=== PATIENT | female | born 1985 | race Two or more races ===

== ENCOUNTER → 2018-04-14 | Emergency (ER) | payer SELFPAY ==
[~2018-04-14] VITALS: Ht 162.6 cm; Wt 65.8 kg
[~2018-04-14] MED LIST: CLINDAMYCIN HC300 MG ORAL; NORCO 5-325 TA1 EACH ORAL; Norco 5mg/325mg tab ORAL ONE
--- NOTE | 2018-04-14 10:50 | NUR ---
ED Nurse Note: patient ambulated into the ED c/oleft upper toothache x 3 days not relieved by tylenol. has appt with dentist next week but the pain got worse that she cannot tolerate, rates 610
[2018-04-14 10:55] VITALS: BP 121/87
--- NOTE | 2018-04-14 11:14 | Emergency Room Report ---
History of Present Illness General Chief Complaint: Toothache Source: Patient Present Illness HPI This patient states she has a history of cavities in the molars on the upper left. She states that she has a filling there that became dislodged. She states that she does have an appointment with the dentist for Wednesday (5 days from now). She states that she needed to make a payment towards her dental bill in order to get seen there. She states she gets paid tomorrow and so will be able to do that and get seen on Wednesday. She has pain in the first molar of the upper left. It is very tender to the touch and sensitive to cold. She denies headache or neck pain. She denies fever or chills. She denies swelling in her face. She has no other complaints. Allergies: Coded Allergies: IBUPROFEN (Verified Allergy, Severe, Rash, 04/14/18) Patient History Past Medical History: none Social History: Denies: smoking, alcohol use, drug use Last Menstrual Period: 04-14 Now: No Reviewed Nursing Documentation: PMH: Agreed; PSxH: Agreed Nursing Documentation-PMH Past Medical History: No Stated History Review of Systems All Other Systems: negative except mentioned in HPI Physical Exam Vital Signs Date Time Temp Pulse Resp B/P (MAP) Pulse Ox O2 Delivery O2 Flow Rate FiO2 04/14/18 10:27 98.8 94 20 121/87 97 Room Air Sp02 EP Interpretation: reviewed, normal General Appearance: no apparent distress, alert, GCS 15, non-toxic Head: normocephalic, atraumatic Eyes: bilateral eye normal inspection, bilateral eye PERRL ENT: hearing grossly normal, normal pharynx, no angioedema, normal voice, other - Dental caries. 1st molar TTP with partial filling in place. No erythema. Neck: full range of motion, supple/symm/no masses Respiratory: no respiratory distress, no retraction, no accessory muscle use, speaking full sentences Rectal: deferred Musculoskeletal: back normal, gait/station normal, normal range of motion, non- tender Neurologic: alert, oriented x3, responsive, motor strength/tone normal, sensory intact, speech normal Psychiatric: judgement/insight normal, memory normal, mood/affect normal, no suicidal/homicidal ideation Skin: normal color, no rash, warm/dry, well hydrated Medical Decision Making Diagnostic Impression: Primary Impression: Odontalgia ER Course This patient has odontogenic pain. The tooth has a partial filling and is exposed and is very tender to palpation. The patient has plans to get the filling replaced in 5 days. There is no evidence of significant infection. I will go ahead and give the patient course of clindamycin as a precaution. Also give the patient pain medication for symptomatic relief. At this time it did not identify an emergency medical condition. There is no evidence of abscess or emergency infection. The patient is given close return precautions and follow-up instructions. Last Vital Signs Date Time Temp Pulse Resp B/P (MAP) Pulse Ox O2 Delivery O2 Flow Rate FiO2 04/14/18 10:55 98.8 94 20 121/87 97 Room Air Status: improved Disposition: HOME, SELF-CARE Condition: Improved Patient Instructions: Dental Pain Ciera Vaughn DO Apr 14, 2018 11:14
--- NOTE | 2018-04-14 11:30 | NUR ---
ED Nurse Note: Patient is being discharged, cleared by ERMD Dr. Vaughn. Discharge instructions/paper/prescription given, explained, patient verbalized understanding, received signature on the paper. ID band removed. Patient ambulated out of ED with steady gait with all belongings.
[2018-04-14 12:03] VITALS: BP 121/87
== END | disposition home or self-care (01) ==
LOC: EMR 11:30
DX: K08.89 Other specified disorders of teeth and supporting structures (principal)
CPT/HCPCS: 99282